=== PATIENT | female | born 1970 | race Caucasian/White ===

== ENCOUNTER 2021-08-14 13:29 | Outpatient (CLI) | payer OTHER, SELFPAY ==
--- NOTE | 2021-08-14 13:40 | CRLHL7_ITS ---
For Patients: As a result of the Century Cures Act, medical imaging exams and procedure reports are released immediately into your electronic medical record. You may view this report before your referring provider. If you have questions, please contact your health care provider. BILATERAL MAMMOGRAM WITH COMPUTER-AIDED DETECTION TECHNIQUE: CC and MLO views were obtained. These mammographic images have been obtained using full-field digital technique. These mammographic images were interpreted with the benefit of computer-aided detection. COMPARISON FILM: 07/03/2019, 08/31/2017, 10/03/2013. FINDINGS: There are scattered areas of fibroglandular density IMPRESSION: There is no radiographic evidence for malignancy. ASSESSMENT: BI-RADS Category 1: Negative RECOMMENDATION: Routine screening mammogram in 1 year. A lay language report of this examination will be provided to the patient. Christian Funez M.D. Diagnostic Radiologist [email or web address] AVELINO/Dictated by: Christian Funez MD @ 08/18/2021 11:12:00 AM (Electronically Signed)
== END 2021-08-14 13:30 | disposition home or self-care (01) ==
LOC: MAMMO 13:31
PROVIDERS: PCP Family Medicine; Visit Provider Family Medicine
DX: Z12.31 Encounter for screening mammogram for malignant neoplasm of breast (principal); R92.8 Other abnormal and inconclusive findings on diagnostic imaging of breast
CPT/HCPCS: 77063; 77067

== ENCOUNTER 2021-11-10 15:49 | Outpatient (CLI) | payer OTHER, SELFPAY ==
--- NOTE | 2021-11-10 15:45 | CRLHL7_ITS ---
For Patients: As a result of the Century Cures Act, medical imaging exams and procedure reports are released immediately into your electronic medical record. You may view this report before your referring provider. If you have questions, please contact your health care provider. INDICATION: Leg pain and swelling. TECHNIQUE: Ultrasound venous duplex lower left extremity. Compression venous exam was performed using fernandze-scale, color Doppler, and spectral Doppler analysis. COMPARISON: None. FINDINGS: Deep veins: Sonographic imaging demonstrates the left common femoral, deep femoral, superficial femoral, popliteal, posterior tibial and the contralateral right common femoral veins to be fully compressible with normal color Doppler blood flow. Superficial veins: Superficial thrombophlebitis in the left medial mid calf. No popliteal cyst. IMPRESSION: 1. No sign of deep venous thrombosis. 2. Superficial thrombophlebitis in the left medial mid calf. Dictated by Oleg Puckett MD @ 11/10/2021 4:58:51 PM (Electronically Signed)
--- OUTSIDE RECORDS SUMMARY | 2021-11-10 15:51 | XMS_ITS ---
:1970 Author Care Team Providers Name Role Phone Alka Gonzalez Primary Care Provider Unavailable Allergies None recorded. Medications Name Status Start Date Stop Date ? ? ibuprofen 800 mg tablet Active ? Not avai lable TAKE ONE TABLET BY MOUTH THREE TIMES A DAY Problems None recorded. Procedures None recorded. Results Lab Results Date Name Specimen Result Interpretation Description Value Range Status Address ? 03/03/2021 Rapid SARS CoV Nose (nasal ? Result positive ? ? [facility] 2 Ag, QL IA, passage) [facility] kristina: Specimen [address] , [place] Past Encounters 01/13/2021 Covid-19 ELYSE TorresC: [address], [place] [address], Ph. Social History None recorded. Vaccine List None recorded. Plan of Care Reminders Provider Appointments None recorded. ? ? Lab None recorded. ? ? Referral None recorded. ? ? Procedures None recorded. ? ? Surgeries None recorded. ? ? Imaging None recorded. ? ? Vitals None recorded.
--- OUTSIDE RECORDS SUMMARY | 2021-11-10 15:51 | XMS_ITS | Clinical Summary ---
:1970 Author Organization [facility] [place] [address] Care Team Providers Name Role Phone Elizabet Day CADDY PACKER Primary Care Provider [phone] Allergies Not on File Medications Not on file Active Problems Not on file Encounters Date Type Specialty Care Team Description 08/24/2021 Telephone Gerald Vela MD Results (Echocardiogram) 08/10/2021 Orders Only <No scans attac hed> from Last 3 Months Social History Tobacco Use Types Packs/Day Years Used Date Never Assessed Sex Assigned at Date Recorded Not on file Plan of Treatment Health Maintenance Due Date Last Done Comments Tdap 05/06/1979 Depression screening for age 12+ 1980 BMI (ht and wt on same day) for age 0305/05/1986 18+ Hepatitis C screening for age 18-79 1986 Tetanus booster 1988 Colonoscopy through age 75 2013 Lipids for age 45-75 2013 Mammogram for age 45-75 2013 Zoster (shingles) series for age 50+ 2018 (1 of 2) Pap test for age 21-65 12/10/2019 12/09/2016, 12/09/2016 COVID-19 vaccine series (4 - Booster 06/15/2021 02/15/2021, 05/29/2020, for Pfizer series) 05/08/2020 Influenza for age 50-64 10/15/2021 Procedures Procedure Name Priority Date/Time Associated Diagnosis Comme nts ECHO COMPLETE WO Routine 08/10/2021 4:16 PM Palpitations Resul ts for this CONTRAST CDT procedure are i n the results section. from Last 3 Months Results ECHO COMPLETE WO CONTRAST (08/10/2021 4:16 PM CDT) P athologist Signature AORTIC VALVE 6 mmHg MEAN PG EJECTION 58 % FRACTION LVEDD 4.7 cm Anatomical Region Laterality Modality HEART Ultrasound Specimen (Source) Anatomical Collection Method Collection Time Re ceived Time Location / / Volume Laterality 08/10/2021 3:52 PM CDT Narrative 08/10/2021 4:29 PM CDT ECHOCARDIOGRAM CHINA HILARIO ? Accessi on#: ?? [id number] : ?1970 51 years Study Date: ?? 08/10/2021 3:52:47 PM Gender: F ?BP: ? 147/90 mmHg Height: 147.00 cm ?BSA: ?1.90 m? ?? Weight: 100.00 kg ?Tech: ? M[facility] ? Referring MD: GERALD VELA Site: ? [facility] Reading Location: MOBILE OP Procedure: 2D, Color Doppler and Spectra l Doppler. Indication for study: palpitations Cardiac Rhythm: Regular.Study quality: T echnically limited. Final Impressions: 1. Technically limited exam. 2. Normal left ventricular size, border line wall thickness, normal global systolic function, calculated EF of 58 %. 3. Right ventricular cavity size is nor mal, global systolic RV function is normal. 4. No significant valve disease detecte d. Comparison There are no prior studies on this patie nt for comparison purposes. Chamber Sizes and Function Normal left ventricular size, borderline wall thickness, normal global systolic function, calculated EF of 58 %. Left atrial size is normal. Right ventricular cavity size is normal, global systolic RV f unction is normal. RV wall thickness is normal. The right atrium is normal. Right atrial volume index is 15 ml/m? ??. Right atrial area is 14 cm? ??. The pulmonary artery is not well visualized. The sin us of Valsalva is normal sized. The asce nding aorta is normal sized. Valves, RV Pressures and Diastolic Funct ion The aortic valve is trileaflet, no steno sis and no regurgitation. The mitral valve is normal in structure, no mitral regurgitation. Indeterminate pattern of LV diastolic filling. The tricuspid valve is normal in structure. Tricuspid regurgita tion is regurgitation is not evident. The pulmonic valve is not well visualized. No pulmonary regurgitation. Masses, Effusion, Shunts There is no pericardial effusion. The in ferior vena cava is not well visualized, respiratory size variation not well visualized. Interatrial septum is not well visualized. MEASUREMENTS AND CALCULATIONS 2-D Measurements and LV Function: LVID (d) ?4.7 cm Planimetered EF 58 % LVID (s) ?3.5 cm LV FS% (2D) ? 2 6 % IVS (d) ? 1.2 cm LVOT diameter ?? 1. 9 cm LVPW (d) ?1.0 cm HR ?78 bpm Ao Sinus ?2.9 cm LA Vol index ?1 8 ml/m2 Ao ST junct 2.6 cm RA Vol index ?15 ml/m2 Asc Ao ?3.3 cm RA area ? 14 cm? ?? LA ?4.5 cm RV Max 4C (d) ?? 2.5 cm Diastology: Mitral ?Tissue Doppler E Peak 1.0 m/s ??e', Septum ? 0.06 m /s A Peak 0.9 m/s ??e', Lateral ?0.12 m /s E/A ?1.0 ?E/e' Average ?? 10. 61 DT ? 270 msec Aortic Valve: Vmax ? 1.5 m/s ??KATERYNA (V) ?? 1.85 cm? ?? VTI ?0.35 m ?? KATERYNA (I) ?? 1.75 cm? ?? LVOT V max 1.0 m/s ??Max PG ?9 mmHg LVOT VTI ?? 0.22 m ?? Mean PG ?? 6 mmHg SV ? 61 ml ?Dim Index 0.62 SV index ?? 32 ml/m? ?? CO ?4.8 l/min ?CI ?2.5 l/min/m? ?? Mitral Valve: MVA ?2.8 cm? ?? MV P 1/2 78 msec Tricuspid Valve and estimated PA pressur es: TAPSE 2.0 cm . This study was interpreted by an [facility] redited facility. CC: [facility] and [facility]. ??Final ?? Procedure Note Cornel Davis MD - 08/10/2021Format ting of this note might be different from the original. ECHOCARDIOGRAM CHINA HILARIO : 1970 51 years Study Date: 08/10 3:52:47 PM Gender: F BP: 147/90 mmHg Height: 147.00 cm BSA: 1.90 m? ?? Weight: 100.00 kg Tech: [facility] Referring MD: GERALD VELA Site: [facility] Reading Location: MOBILE OP Procedure: 2D, Color Doppler and Spectra l Doppler. Indication for study: palpitations Cardiac Rhythm: Regular.Study quality: T echnically limited. Final Impressions: 1. Technically limited exam. 2. Normal left ventricular size, border line wall thickness, normal global systolic function, calculated EF of 58 %. 3. Right ventricular cavity size is nor mal, global systolic RV function is normal. 4. No significant valve disease detecte d. Comparison There are no prior studies on this patie nt for comparison purposes. Chamber Sizes and Function Normal left ventricular size, borderline wall thickness, normal global systolic function, calculated EF of 58 %. Left atrial size is normal. Right ventricular cavity size is normal, global systolic RV function is normal. RV wall thickness is normal. The right atrium is normal. Right atrial volume index is 15 ml/m? ??. Right atrial area is 14 cm? ??. The pulmonary artery is not well visualized. The sinus of Valsalva is normal sized. The ascending aorta is normal siz ed. Valves, RV Pressures and Diastolic Funct ion The aortic valve is trileaflet, no steno sis and no regurgitation. The mitral valve is normal in structure, no mitral regurgitation. Indeterminate pattern of LV diastolic filling. The tricuspid valve is normal in structure. Tricuspid regurgita tion is regurgitation is not evident. The pulmonic valve is not well visualized. No pulmonary regurgitation. Masses, Effusion, Shunts There is no pericardial effusion. The in ferior vena cava is not well visualized, respiratory size variation not well visualized. Interatrial septum is not well visualized. MEASUREMENTS AND CALCULATIONS 2-D Measurements and LV Function: LVID (d) 4.7 cm Planimetered EF 58 % LVID (s) 3.5 cm LV FS% (2D) 26 % IVS (d) 1.2 cm LVOT diameter 1.9 cm LVPW (d) 1.0 cm HR 78 bpm Ao Sinus 2.9 cm LA Vol index 18 ml/m2 Ao ST junct 2.6 cm RA Vol index 15 ml/m2 Asc Ao 3.3 cm RA area 14 cm? ?? LA 4.5 cm RV Max 4C (d) 2.5 cm Diastology: Mitral Tissue Doppler E Peak 1.0 m/s e', Septum 0.06 m/s A Peak 0.9 m/s e', Lateral 0.12 m/s E/A 1.0 E/e' Average 10.61 DT 270 msec Aortic Valve: Vmax 1.5 m/s KATERYNA (V) 1.85 cm? ?? VTI 0.35 m KATERYNA (I) 1.75 cm? ?? LVOT V max 1.0 m/s Max PG 9 mmHg LVOT VTI 0.22 m Mean PG 6 mmHg SV 61 ml Dim Index 0.62 SV index 32 ml/m? ?? CO 4.8 l/min CI 2.5 l/min/m? ?? Mitral Valve: MVA 2.8 cm? ?? MV P / 78 msec Tricuspid Valve and estimated PA pressur es: TAPSE 2.0 cm . This study [facility] CC: [facility]. Final Gerald Vela MD ECHO ORD from Last 3 Months Insurance Payer Benefit Plan / Subscriber ID Effective Dates Phone Addre ss Type Group MEDICA MEDICA CHOICE [id number] 2021-Present [address] [id number] [place] [address] [phone] [place] [address] Care Teams Final Inspector And Tester Relationship Specialty Start Date End Date Elizabet Day, CADDY PACKER PCP - General Nurse Practitioner 04/24/[address] [place] [address]
== END 2021-11-10 15:50 | disposition home or self-care (01) ==
PROVIDERS: PCP Nurse Practitioner Family; Visit Provider Nurse Practitioner Family
DX: I80.02 Phlebitis and thrombophlebitis of superficial vessels of left lower extremity (principal); M79.662 Pain in left lower leg; R22.42 Localized swelling, mass and lump, left lower limb; L03.116 Cellulitis of left lower limb
CPT/HCPCS: 93971

== ENCOUNTER 2022-02-19 09:57 | Outpatient (CLI) | payer OTHER, SELFPAY ==
[2022-02-19 12:19] LABS: Free T4 Free Thyroxine* 0.97 ng/dL (0.70-1.85)
[2022-02-25 00:55] LABS: Sex Hormone Binding Globulin 18 nmol/L (17-125); Testosterone, Free LC-MS/MS 4.2 pg/mL (0.6-3.8); Testosterone, LC-MS/MS 19 ng/dL (9-55)
== END 2022-02-19 09:58 | disposition home or self-care (01) ==
PROVIDERS: PCP Nurse Practitioner Family; Visit Provider Obstetrics & Gynecology
DX: R68.82 Decreased libido (principal); E05.90 Thyrotoxicosis, unspecified without thyrotoxic crisis or storm; I10 Essential (primary) hypertension; E66.9 Obesity, unspecified; Z12.4 Encounter for screening for malignant neoplasm of cervix
CPT/HCPCS: 84270; 84402; 84403; 84439

== ENCOUNTER 2023-11-29 08:29 | Outpatient (CLI) | payer OTHER, SELFPAY ==
--- OUTSIDE RECORDS SUMMARY | 2023-11-29 08:32 | XMS_ITS | Clinical Summary ---
Author Organization [facility] Address [place], [place] [address] Care Team Providers Care Chair Spring Assembler Name Role Phone Elizabet Day NP Primary Care Provider [phone] Social History Tobacco Use Types Packs/Day Years Used Date Smoking Tobacco: Never Assessed Social Connections Answer Date Recorded Frequency of Communication with Friends and Fami ly Not on file 07/24/2021 Sex and Gender Information Value Date Recorded Sex Assigned at Not on file Gender Identity Not on file Sexual Orientation Not on file Plan of Treatment Health Maintenance Due Date Last Done Comments Tdap 05/06/1979 Depression screening for age 12+ 1980 HIV for age 15-65 05/06/1983 BMI (ht and wt on same day) for age 18+ 1986 Hepatitis C screening for age 18-79 1986 Tetanus booster 1988 Colonoscopy through age 75 2013 Lipids for age 45-75 2013 Mammogram for age 45-75 2013 Zoster (shingles) series for age 50+ (1 of 2) 2018 COVID-19 vaccine series ( season) 2023 02/15/2021, 05/29/2020, 05/08/2020 Influenza for age 50-64 10/16/2023 Pap test for age 21-65 02/19/2025 3, 02/19/2022, 12/09/2016, Additional history exists Pneumococcal series for age 6-64 Aged Out No longer eligible based on patient's age to complete this topic Procedures Procedure Name Priority Date/Time Associated Diagnosis Comments HPV HIGH RISK Routine 02/19/2022 10:00 AM [facility] from Last 3 Months or Most Recently Relevant to Health Maintenance Results * HPV HIGH RISK (02/19/2022 10:00 AM [facility]) TYPE 16 Negative Negative 02/23/2022 2:13 PM [facility] TYPE 18 Negative Negative 02/23/2022 2:13 PM [facility] OTHER HIGH RISK TYPES Negative Negative 02/23/2022 2:13 PM [facility] Other (Cervical) 02/19/2022 10:00 AM [facility] 02/22/2022 9:26 AM [facility] Narrative [facility] - 02/23/2022 2:13 PM [facility] HPV types 16, 18, 31, 33, 35, 39, 45, 51, 52, 56, 58, 59, 66 and 68 DNA were undetectable or below the pre-set threshold. Methodology: Sole Eulalio 4800 HPV Test Alexandria Lund MD MICROBIOLOGY [facility] [address] [place] [address], from Last 3 Months or Most Recently Relevant to Health Maintenance Care Teams Chair Spring Assembler Relationship Specialty Start Date End Date Elizabet Day NP PCP - General Nurse Practitioner 04/24/21
--- NOTE | 2023-11-29 08:45 | CRLHL7_ITS ---
For Patients: As a result of the Cures Act, medical imaging exams and procedure reports are released immediately into your electronic medical record. You may view this report before your referring provider. If you have questions, please contact your health care provider. BILATERAL SCREENING MAMMOGRAM WITH COMPUTER-AIDED DETECTION AND TOMOSYNTHESIS TECHNIQUE: CC and MLO views were obtained. These mammographic images have been obtained using full-field digital technique. These mammographic images were interpreted with the benefit of computer-aided detection. Breast Tomosynthesis was used in this interpretation. COMPARISON FILM: 08/14/21, 07/03/19, 08/31/17. FINDINGS: The breasts are almost entirely fatty IMPRESSION: There is no radiographic evidence for malignancy. ASSESSMENT: BI-RADS Category 1: Negative RECOMMENDATION: Routine screening mammogram in 1 year. A lay language report of this examination will be provided to the patient. Christian Funez M.D. Diagnostic Radiologist [email or web address] LEONIE/benjamin Transcribed: 2:09 p.jose alexander/Dictated by: Christian Funez MD @ 12/05/2023 10:14:00 AM (Electronically Signed)
== END 2023-11-29 08:30 | disposition home or self-care (01) ==
LOC: MAMMO 08:29
PROVIDERS: PCP Nurse Practitioner Family; Visit Provider Nurse Practitioner Family
DX: Z12.31 Encounter for screening mammogram for malignant neoplasm of breast (principal)
CPT/HCPCS: 77063; 77067

== ENCOUNTER 2024-02-27 07:50 | Outpatient (CLI) | payer OTHER, SELFPAY | END 2024-02-27 07:51 | disposition home or self-care (01) | LOC: NFLDREF 03-05 23:08 | PROVIDERS: PCP Family Medicine; Referring Provider Nurse Practitioner Family; Visit Provider Family Medicine | DX: I10 Essential (primary) hypertension (principal); E78.5 Hyperlipidemia, unspecified; Z13.29 Encounter for screening for other suspected endocrine disorder | CPT/HCPCS: 80053; 80061; 84443 ==

== ENCOUNTER 2024-03-14 07:47 | Outpatient (CLI) | payer OTHER, SELFPAY | END 2024-03-14 07:48 | disposition home or self-care (01) | LOC: NFLDREF 03-19 03:02 | PROVIDERS: PCP Family Medicine; Referring Provider Family Medicine; Visit Provider Family Medicine | DX: I10 Essential (primary) hypertension (principal) | CPT/HCPCS: 80048 ==

== ENCOUNTER 2024-04-02 15:30 | Outpatient (RCR) | payer OTHER, SELFPAY | END 2024-05-02 13:36 | disposition home or self-care (01) | PROVIDERS: PCP Family Medicine; Visit Provider Family Medicine | DX: M54.9 Dorsalgia, unspecified (principal); M79.621 Pain in right upper arm; M54.2 Cervicalgia; M62.81 Muscle weakness (generalized); Z51.89 Encounter for other specified aftercare | CPT/HCPCS: 97110; 97140; 97161 ==

== ENCOUNTER 2024-04-11 08:18 | Outpatient (CLI) | payer OTHER, SELFPAY | END 2024-04-11 08:19 | disposition home or self-care (01) | LOC: NFLDREF 04-13 04:11 | PROVIDERS: PCP Family Medicine; Referring Provider Family Medicine; Visit Provider Family Medicine | DX: I10 Essential (primary) hypertension (principal) | CPT/HCPCS: 80048 ==

== ENCOUNTER 2024-06-27 15:05 | Outpatient (CLI) | payer OTHER, SELFPAY | END 2024-06-27 15:06 | disposition home or self-care (01) | LOC: NFLDREF 15:11 | PROVIDERS: PCP Family Medicine; Visit Provider Registered Nurse | DX: R07.9 Chest pain, unspecified (principal); I10 Essential (primary) hypertension | CPT/HCPCS: 80048 ==

== ENCOUNTER 2024-07-02 07:24 | Outpatient (CLI) | payer OTHER, SELFPAY ==
--- NOTE | 2024-07-02 08:56 | P.ANES_ITS ---
Anesthesia Charges Start Date/Time Anesthesia Start Date: 07/02/24 Anesthesia Start Time: 08:15 Stop Date/Time Anesthesia Stop Date: 07/02/24 Anesthesia Stop Time: 09:02 Coding CPT Codes CPT Codes: ANES LWR INTST NDSC NOS - 92767 ([id number]) QK - MARKET RELATIONSHIP MANAGER 2-4 CNCRNT ANES PROC, QX - CONDITIONING COACH SVC W/ MED DIRECTION, P3 - PATIENT W/SEVERE SYS DISEASE
--- NOTE | 2024-07-02 08:56 | W.ANESCHARGE ---
Anesthesia Charges Start Date/Time Anesthesia Start Date: 07/02/24 Anesthesia Start Time: 08:15 Stop Date/Time Anesthesia Stop Date: 07/02/24 Anesthesia Stop Time: 09:02 Coding CPT Codes CPT Codes: ANES LWR INTST NDSC NOS - 98115 ([id number]) QK - SUPERVISOR HOSPITALITY HOUSE 2-4 CNCRNT ANES PROC, QX - TRACK LINER OPERATOR SVC W/ MED DIRECTION, P3 - PATIENT W/SEVERE SYS DISEASE
--- NOTE | 2024-07-02 09:04 | P.ANES_ITS ---
Anesthesia Charges Start Date/Time Anesthesia Start Date: 07/02/24 Anesthesia Start Time: 08:15 Stop Date/Time Anesthesia Stop Date: 07/02/24 Anesthesia Stop Time: 09:02 Coding CPT Codes CPT Codes: ANES LWR INTST NDSC NOS - 88936 ([id number]) P3 - PATIENT W/SEVERE SYS DISEASE, QK - GLASS SAGGER 2-4 CNCRNT ANES PROC, QX - CLINICAL SAFETY MANAGER SVC W/ MD MED DIRECTION
--- NOTE | 2024-07-02 09:04 | W.ANESCHARGE ---
Anesthesia Charges Start Date/Time Anesthesia Start Date: 07/02/24 Anesthesia Start Time: 08:15 Stop Date/Time Anesthesia Stop Date: 07/02/24 Anesthesia Stop Time: 09:02 Coding CPT Codes CPT Codes: ANES LWR INTST NDSC NOS - 25614 ([id number]) P3 - PATIENT W/SEVERE SYS DISEASE, QK - SEAM RUBBING MACHINE OPERATOR 2-4 CNCRNT ANES PROC, QX - POLITICAL ANTHROPOLOGIST SVC W/ MD MED DIRECTION
== END 2024-07-02 07:25 | disposition home or self-care (01) ==
LOC: OP CLINIC 07:26
PROVIDERS: PCP Family Medicine; Visit Provider Surgery
DX: Z12.11 Encounter for screening for malignant neoplasm of colon (principal); D12.3 Benign neoplasm of transverse colon; D12.8 Benign neoplasm of rectum
CPT/HCPCS: 00811; 00812; 45385; 88305; J2704

== ENCOUNTER 2024-09-07 14:55 | Outpatient (CLI) | payer OTHER, SELFPAY | END 2024-09-07 14:56 | disposition home or self-care (01) | LOC: NFLDREF 14:56 | PROVIDERS: PCP Family Medicine; Visit Provider Family Medicine | DX: I10 Essential (primary) hypertension (principal) | CPT/HCPCS: 80048 ==

== ENCOUNTER 2024-11-30 08:31 | Outpatient (CLI) | payer OTHER, SELFPAY ==
--- NOTE | 2024-11-30 08:45 | CRLHL7_ITS ---
For Patients: As a result of the Century Cures Act, medical imaging exams and procedure reports are released immediately into your electronic medical record. You may view this report before your referring provider. If you have questions, please contact your health care provider. INDICATION: BILATERAL SCREENING MAMMOGRAM, ASYMPTOMATIC 54 Y/O FEMALE COMPARISON: 11/29/2023, 08/14/2021, 07/03/2019 TECHNIQUE: Digital mammogram in CC and MLO projections including computer-aided detection (CAD) and tomosynthesis. BREAST COMPOSITION: The breasts are almost entirely fatty. FINDINGS: No suspicious findings. ASSESSMENT: BI-RADS 2 Benign RECOMMENDATION: Annual screening mammogram. A lay language report of this examination will be provided to the patient. Dictated by: Christian Funez MD @ 12/03/2024 09:07:01 (Electronically Signed)
== END 2024-11-30 08:32 | disposition home or self-care (01) ==
LOC: MAMMO 08:31
PROVIDERS: PCP Family Medicine; Visit Provider Family Medicine
DX: Z12.31 Encounter for screening mammogram for malignant neoplasm of breast (principal)
CPT/HCPCS: 77063; 77067